=== PATIENT | male | born 1940 | race Caucasian/White ===

== ENCOUNTER 2016-12-22 09:52 | Observation (INO) | payer OTHER ==
[~2016-12-22] VITALS: Ht 180.3 cm; Wt 71.0 kg
[~2016-12-22 09:52] MED LIST: ACET1TAB49 PO; METO-53 PO
[2016-12-22] MEDS ORDERED: ASPIRIN 81 MG TAB PO STA ×2 (10:15→10:21)
[2016-12-22] MEDS ORDERED: NITROGLYCERIN 2% 1 GM OINT PKT TD STA ×2 (10:15→10:21)
--- NOTE | 2016-12-22 10:29 | RADRPT ---
PROCEDURE: XR Chest. CLINICAL INDICATION: Chest pain TECHNIQUE: Single portable view of the chest was obtained COMPARISON: 08/07/08 FINDINGS: The heart and mediastinum are within normal limits. There are mild bibasilar atelectatic changes. The lungs are otherwise clear. There is no pleural effusion or pneumothorax. RPTAT: AA IMPRESSION: Mild bibasilar atelectatic changes. .Stevie Lanier MD, MD Date Time Electronically viewed and signed by .Stevie Lanier MD, on 12/22/2016 10:29 .S/
[2016-12-22] MEDS ORDERED: NITROGLYCERIN (SL) 0.4 MG TAB SL PRN ×2 (10:30)
[2016-12-22] MEDS ORDERED: LISI2.5T59 PO (10:48)
[2016-12-22] MEDS ORDERED: NITR0.4T32 SL (10:48)
[2016-12-22] MEDS ORDERED: FINA5TAB4 PO (10:48)
[2016-12-22 11:00] LABS: BASOPHILS % 0.1 % (0.0-2.0); EOSINOPHILS % 0.5 % (0.0-7.0); HEMATOCRIT 42.9 % (42.0-52.0); HEMOGLOBIN 14.6 g/dl (14.0-18.0); LYMPHOCYTES # 1.8 10^3/ul (0.8-2.9); LYMPHOCYTES % 20.3 % (15.0-51.0); MEAN CORPUSCULAR HEMOGLOBIN 33.8 pg (29.0-33.0); MEAN CORPUSCULAR VOLUME 99.3 fl (82.0-101.0); MEAN PLATELET VOLUME 10.6 fl (7.4-10.4); MONOCYTE # 0.4 10^3/ul (0.3-0.9); MONOCYTES % 4.6 % (0.0-11.0); NEUTROPHIL # 6.5 10^3/ul (1.6-7.5); NEUTROPHILS % 74.3 % (39.0-77.0); PLATELET COUNT 123 10^3/UL (140-415); RED BLOOD COUNT 4.32 10^6/ul (4.70-6.10); WHITE BLOOD COUNT 8.7 10^3/ul (4.8-10.8)
[2016-12-22 11:19] LABS: ANION GAP 10 (8-16); BLOOD UREA NITROGEN 13 mg/dl (7-20); CALCIUM 9.4 mg/dl (8.4-10.2); CARBON DIOXIDE 30 mmol/L (21-31); CHLORIDE 107 mmol/L (97-110); CREATININE 0.92 mg/dl (0.61-1.24); GLUCOSE 115 mg/dl (70-220); POTASSIUM 4.8 mmol/L (3.5-5.1); SODIUM 142 mmol/L (135-144)
--- NOTE | 2016-12-22 11:26 | RADRPT ---
PROCEDURE: CT Brain without contrast. CLINICAL INDICATION: Dizziness. TECHNIQUE: A CT of the brain was performed on multidetector high-resolution CT scanner utilizing a xial sections from the skull base through the vertex without contrast. The scan was reviewed in sof t tissue brain and high frequency resolution bone algorithm windows. Images were reviewed on a high -resolution PACS workstation. One or more the following does reduction techniques were utilized: Aut omated exposure control, adjustment of the mA/ or kV according to patient's size, or use of iterativ e reconstruction technique. The exam CTDI = 45.01 mGy and the DLP = 720.23 mGy-cm. DICOM images are available. COMPARISON: Brain CT 10/09/2007. FINDINGS: The ventricles and sulci are mildly to moderately prominent indicative of volume loss, more pronounc ed in bilateral frontotemporal regions. There is mild cerebellar volume loss. There is no intracran ial hemorrhage, mass effect or midline shift. No abnormal intra-axial or extra-axial fluid collecti ons are seen. The naqvi/white matter differentiation is preserved. There are moderate patchy foci of hypoattenuation in the white matter, which are nonspecific in etio logy but likely reflect chronic small vessel ischemic changes. Small old lacunar infarcts are noted in bilateral lentiform nuclei, thalami, coronal radiata and bilateral caudate heads. There are moder ate intracranial vascular calcifications consistent with atherosclerosis. The visualized paranasal s inuses are essentially clear. IMPRESSION: 1. No acute intracranial hemorrhage, transcortical infarction or mass effect. 2. Moderate intracranial atherosclerosis and chronic small vessel ischemic changes. 3. Small old lacunar infarcts in bilateral lentiform nuclei, thalami, coronal radiata and bilateral caudate heads. 4. Mild to moderate cerebral and cerebellar volume loss. RPTAT: HH .Ian Corey MD, MD Date Time Electronically viewed and signed by .Ian Corey MD, MD on 12/22/2016 11:26 .N/
[2016-12-22 11:41] LABS: TROPONIN-I < 0.012 ng/ml (0.00-0.12)
[2016-12-22] MEDS ORDERED: ONDANSETRON 4 MG INJ IV PRN ×2 (12:00→13:00)
[2016-12-22] MEDS ORDERED: ACETAMINOPHEN 325 MG TAB PO PRN ×2 (12:00→13:00)
[2016-12-22] MEDS ORDERED: ONDANSETRON 4 MG TAB PO PRN (13:00)
[2016-12-22] MEDS ORDERED: NACL 0.9% 3 ML SYG IV SCH (13:00)
--- NOTE | 2016-12-22 13:24 | ERD ---
ER Documentation Chief Complaint Chief Complaint pt bib family with c/o chest pain starting at 6 am with dizziness HPI Patient is a 76-year-old male with vertigo and hypertension who presents with dizziness. The patient has had dizziness since this morning and threw up. He still feels dizziness but improved a bit. He tried meclizine at home. He denies weakness or headache. He said that he felt the similar symptoms in 2007 at that time he had a heart attack. His primary doctor is Dr. Maximus Henao. He is a longtime smoker. ROS All systems reviewed and are negative except as per history of present illness. Medications Home Meds Reported Medications Finasteride* (Finasteride*) 5 Mg Tablet, 5 MG PO DAILY, TAB 12/22/16 Nitroglycerin* (Nitroglycerin* SL) 0.4 Mg Tab.subl, 0.4 MG SL Q5MIN Y for CHEST PAIN, BOTTLE 12/22/16 Lisinopril* (Lisinopril*) 2.5 Mg Tablet, 2.5 MG PO DAILY, #30 TAB 12/22/16 Discontinued Reported Medications [Unknown] No Conflict Check 04/03/11 Metoprolol (Lopressor) 50 Mg Tablet, 50 MG PO DAILY 04/03/11 Acetaminophen/Phenyltolx Cit (Asa Free Analgesic Tablet) 1 Tab Tablet, 81 MG PO DAILY 04/03/11 Allergies Allergies: Coded Allergies: No Known Drug Allergies (Verified Allergy, Unknown, 04/03/11) PMhx/Soc History of Surgery: Yes (BYPASS SURGERY 2010,ANGIOPLASTY) Anesthesia Reaction: No Hx Neurological Disorder: No Hx Respiratory Disorders: No Hx Cardiac Disorders: Yes (HIGH CHOLESTEROL,HYPERTENSION ) Hx Psychiatric Problems: No Hx Miscellaneous Medical Probl: No Hx Alcohol Use: No Hx Substance Use: No Hx Tobacco Use: Yes Smoking Status: Current every day smoker FmHx Family History: No diabetes Physical Exam Vitals Vital Signs Date Time Temp Pulse Resp B/P Pulse Ox O2 Delivery O2 Flow Rate FiO2 12/22/16 12:19 47 18 135/75 100 Nasal Cannula 12/22/16 10:44 Nasal Cannula 2 12/22/16 09:59 98.3 55 16 167/78 100 Physical Exam Const: No acute distress Head: Atraumatic Eyes: Normal Conjunctiva ENT: Normal External Ears, Nose and Mouth. Neck: Full range of motion..~ No meningismus. Resp: Clear to auscultation bilaterally Cardio: Regular rate and rhythm, no murmurs Abd: Soft, non tender, non distended. Normal bowel sounds Skin: No petechiae or rashes Back: No midline or flank tenderness Ext: No cyanosis, or edema Neur: Awake and alert Psych: Normal Mood and Affect Result Diagram: 12/22/16 1030 12/22/16 1030 Results 24 hrs Laboratory Tests Test 12/22/16 10:30 White Blood Count 8.710^3/ul Red Blood Count 4.3210^6/ul Hemoglobin 14.6g/dl Hematocrit 42.9% Mean Corpuscular Volume 99.3fl Mean Corpuscular Hemoglobin 33.8pg Mean Corpuscular Hemoglobin Concent 34.0g/dl Red Cell Distribution Width 13.0% Platelet Count 36050^3/UL Mean Platelet Volume 10.6fl Neutrophils % 74.3% Lymphocytes % 20.3% Monocytes % 4.6% Eosinophils % 0.5% Basophils % 0.1% Nucleated Red Blood Cells % 0.0/100WBC Neutrophils # 6.510^3/ul Lymphocytes # 1.810^3/ul Monocytes # 0.410^3/ul Eosinophils # 0.010^3/ul Basophils # 0.010^3/ul Nucleated Red Blood Cells # 0.010^3/ul Sodium Level 142mmol/L Potassium Level 4.8mmol/L Chloride Level 107mmol/L Carbon Dioxide Level 30mmol/L Anion Gap 10 Blood Urea Nitrogen 13mg/dl Creatinine 0.92mg/dl Glucose Level 115mg/dl Calcium Level 9.4mg/dl Troponin I < 0.012ng/ml Current Medications Medications (Trade) Dose Ordered Sig/Ko Route PRN Reason Start Time Stop Time Status Last Admin Dose Admin Aspirin (Aspirin) 162 mg ONCE STAT PO 12/22/16 10:15 12/22/16 10:22 DC Nitroglycerin (Nitroglycerin 2% Oint) 1 inch ONCE STAT TD 12/22/16 10:15 12/22/16 10:22 DC Nitroglycerin (Nitroglycerin (Sl Tab) 0.4 Mg) 1 tab Q5M UP TO 3 DOSES PRN SL CHEST PAIN 12/22/16 10:30 12/22/16 10:30 DC Aspirin (Aspirin) 162 mg ONCE STAT PO 12/22/16 10:21 12/22/16 10:22 DC 12/22/16 10:27 Nitroglycerin (Nitroglycerin 2% Oint) 1 inch ONCE STAT TD 12/22/16 10:21 12/22/16 10:22 DC 12/22/16 10:42 Nitroglycerin (Nitroglycerin (Sl Tab) 0.4 Mg) 1 tab Q5M UP TO 3 DOSES PRN SL CHEST PAIN 12/22/16 10:30 Ondansetron HCl (Zofran Inj) 4 mg ER BRIDGE PRN IV NAUSEA AND/OR VOMITING 12/22/16 12:00 12/22/16 12:56 DC Acetaminophen (Tylenol Tab) 650 mg ER BRIDGE PRN PO MILD PAIN/FEVER 12/22/16 12:00 12/22/16 12:56 DC IV Flush (NS 3 ml) 3 ml PER PROTOCOL IV 12/22/16 13:00 Ondansetron HCl (Zofran Tab) 4 mg Q6H PRN PO NAUSEA AND/OR VOMITING 12/22/16 13:00 Ondansetron HCl (Zofran Inj) 4 mg Q6H PRN IV NAUSEA AND/OR VOMITING 12/22/16 13:00 Acetaminophen (Tylenol Tab) 650 mg Q6H PRN PO PAIN LEVEL 1-3 OR FEVER 12/22/16 13:00 Enoxaparin Sodium (Lovenox) 40 mg DAILY SC 12/23/16 09:00 Finasteride (Proscar) 5 mg DAILY PO 12/23/16 09:00 Lisinopril (Zestril) 2.5 mg DAILY PO 12/23/16 09:00 Procedures/MDM EKG #1 read by me: Rate/Rhythm: Sinus bradycardia rate of 50 Intervals: Normal Impression: Sinus bradycardia without ischemia EKG #2 is pending at this time. Chest x-ray negative per radiology. CT brain negative per radiology. Smoking Cessation Therapy: Pt. was lectured for greater than 3 minutes on the health risks of continued smoking and the benefits of cessation. Patient is a 76-year-old male with previous [place] and hypertension as well as smoking who presents with dizziness and vomiting. My concern is that these were similar symptoms that he had prior when he had an [place] in 2007. He was given aspirin nitroglycerin empirically. He will be admitted to the panel team to a telemetry bed under observation status. He is a [facility] patient will be admitted to the panel team. I doubt pneumonia, pneumothorax, pulmonary embolism, or aortic dissection. I doubt stroke or intracranial hemorrhage or mass. Departure Diagnosis: Primary Impression: Dizziness Additional Impression: Chest pain Chest pain type: unspecified Qualified Code: R07.9 - Chest pain, unspecified type Condition: EMMA Hamilton MD Dec 22, 2016 13:23
--- NOTE | 2016-12-22 14:01 | HP ---
Date/Time of Note Date/Time of Note DATE: 12/22/16 TIME: 13:51 Assessment/Plan VTE Prophylaxis VTE Prophylaxis Intervention: SCD's Lines/Catheters IV Catheter Type (from Nrs): Saline Lock Assessment/Plan Assessment/Plan 76 yo M with pmhx CAD sp angioplasty presents with 1 day of lightheadedness, 1 episode of vomitting. HR in ER in the 40s. D/dx includes symptomatic bradycardia from SSS v orthostatic hypotension v viral gastro v other PLAN tele monitoring TSH, TTE cont home BP meds ACS r/o started by the ER cardiology eval for PM given HR in 40s orthostatics cont home finasteride, hold acei DVT prophx cardiac diet start daily asa. check a1c and lipids HPI/ROS Admit Date/Time Admit Date/Time Hx of Present Illness CC lightheadedness x 1 day HPI 76 yo M with pmhx CAD sp angioplasty in 2007, HTN, BPH presents with 1 day of lightheadedness. Pt reports he was in his USOH in the past few days however when he awoke this morning he felt very lightheaded. Also had 1 episode of nonbloody nonbilious emesis. No chest pain, no SOB, no fevers, no chills. No abd pain. No changes in PO habits in recent days, no dysuria or hematuria PMH/Family/Social Past Medical History as per [facility] Social History lives with his of 53 years in the community Smoking Status: Current every day smoker Exam/Review of Systems Vital Signs Vitals Vital Signs Date Time Temp Pulse Resp B/P Pulse Ox O2 Delivery O2 Flow Rate FiO2 12/22/16 12:19 47 18 135/75 100 Nasal Cannula 12/22/16 10:44 2 12/22/16 09:59 98.3 Exam Exam EOMI MMM +bradycardic lungs clear abd soft no rashes no edema moves exts freely HR in ER on tele in mid-low 40s labs noted Labs Result Diagram: 12/22/16 1030 12/22/16 1030 Medications Medications Current Medications Ondansetron HCl (Zofran Tab) 4 mg Q6H PRN PO NAUSEA AND/OR VOMITING; Start at 13:00 Ondansetron HCl (Zofran Inj) 4 mg Q6H PRN IV NAUSEA AND/OR VOMITING; Start at 13:00 Acetaminophen (Tylenol Tab) 650 mg Q6H PRN PO PAIN LEVEL 1-3 OR FEVER; Start 12/22/16 at 13:00 Enoxaparin Sodium (Lovenox) 40 mg DAILY SC ; Start 12/23/16 at 09:00 Finasteride (Proscar) 5 mg DAILY PO ; Start 12/23/16 at 09:00 Lisinopril (Zestril) 2.5 mg DAILY PO ; Start 12/23/16 at 09:00 YAZMIN WONG MD Dec 22, 2016 14:01
[2016-12-22 14:47] LABS: CHOL/HDL RATIO 4.3 RATIO
--- NOTE | 2016-12-22 15:09 | CONS ---
Date/Time of Note Date/Time of Note DATE: 12/22/16 TIME: 15:01 Assessment/Plan Assessment/Plan Chief Complaint/Hosp Course Sinus bradycardia: Benign. Was able to increase his HR to 70 with just bedside arm movement. I do not think it is causing him dizziness and no e/o conduction disease as of yet. Observe for now. Dizziness: By history, likely orthostatic related though orthostatics reportedly normal here H/o CAD s/p [place]/PCI: Had dizziness in that setting but also chest pain which he does not have so doubt ACS HTN -observe on tele for heart block -echo -trend trops -if all normal tomorrow, will ambulate pt and if HR appropriately improves and pt is asymptomatic, could possibly be discharged Problems: Consultation Date/Type/Reason Admit Date/Time Date of Consultation: Dec 22, 2016 Type of Consultation: Cardiology Reason for Consultation Bradycardia, dizziness Referring Provider: YAZMIN WONG MD Hx of Present Illness 76 yo M with a h/o CAD s/p [place]/PCI 2007, HTN, who presented with dizziness/ vomiting. Pt notes that he got up today and when he stood up from his bed he began to feel dizzy which he describes as light headedness and brief episode of the room spinning. He then vomited. No abdominal pain. In 2007 he had dizziness as well so he was worried and came in. He had chest pain during his [place] however which he denies. He is essentially back to normal. He is active and walks around without any chest pain or SOB, no dizziness. Never had syncope. Not on angel blockers. per HPI Past Medical History per HPI Social History Smoking Status: Current every day smoker Exam/Review of Systems Vital Signs Vitals Vital Signs Date Time Temp Pulse Resp B/P Pulse Ox O2 Delivery O2 Flow Rate FiO2 12/22/16 14:05 44 128/73 52 125/85 63 130/77 12/22/16 12:19 18 100 Nasal Cannula 12/22/16 10:44 2 12/22/16 09:59 98.3 Exam Constitutional: alert, oriented Psych: nl mood/affect, no complaints Head: atraumatic, normocephalic Eyes: nl conjunctiva ENMT: nl external ears & nose Neck: supple, No jvd Respiratory: clear to auscultation, No crackles/rales Cardiovascular: No edema, No regular rate and rhythm (bradycardia ~50), No systolic murmur Gastrointestinal: non-tender, soft Neurological: nl mental status, nl speech Skin: No rash or lesions Results EKG: sinus bradycardia HR 50, no ST changes Tele in ED shows only sinus bradycardia Bedside arm exercise increased HR to the 70s. Result Diagram: 12/22/16 1030 12/22/16 1030 Results 24 hrs Laboratory Tests Test 12/22/16 10:30 12/22/16 11:00 White Blood Count 8.7 Red Blood Count 4.32 L Hemoglobin 14.6 Hematocrit 42.9 Mean Corpuscular Volume 99.3 Mean Corpuscular Hemoglobin 33.8 H Mean Corpuscular Hemoglobin Concent 34.0 Red Cell Distribution Width 13.0 Platelet Count 123 L Mean Platelet Volume 10.6 H Neutrophils % 74.3 Lymphocytes % 20.3 Monocytes % 4.6 Eosinophils % 0.5 Basophils % 0.1 Nucleated Red Blood Cells % 0.0 Neutrophils # 6.5 Lymphocytes # 1.8 Monocytes # 0.4 Eosinophils # 0.0 Basophils # 0.0 Nucleated Red Blood Cells # 0.0 Sodium Level 142 Potassium Level 4.8 Chloride Level 107 Carbon Dioxide Level 30 Anion Gap 10 Blood Urea Nitrogen 13 Creatinine 0.92 Glucose Level 115 Calcium Level 9.4 Troponin I < 0.012 Hemoglobin A1c 5.3 Triglycerides Level 118 Cholesterol Level 208 H LDL Cholesterol, Calculated 136 HDL Cholesterol 48 Cholesterol/HDL Ratio 4.3 Medications Medications Current Medications Ondansetron HCl (Zofran Tab) 4 mg Q6H PRN PO NAUSEA AND/OR VOMITING; Start at 13:00 Ondansetron HCl (Zofran Inj) 4 mg Q6H PRN IV NAUSEA AND/OR VOMITING; Start at 13:00 Acetaminophen (Tylenol Tab) 650 mg Q6H PRN PO PAIN LEVEL 1-3 OR FEVER; Start 12/22/16 at 13:00 Enoxaparin Sodium (Lovenox) 40 mg DAILY SC ; Start 12/23/16 at 09:00 Finasteride (Proscar) 5 mg DAILY PO ; Start 12/23/16 at 09:00 Aspirin (Halfprin) 81 mg DAILY PO ; Start 12/23/16 at 09:00 SARAH ORTIZ Dec 22, 2016 15:09
[2016-12-22 15:52] VITALS: Ht 180.3 cm; Wt 71.0 kg
[2016-12-22 16:20] VITALS: BP_SYST 120; BP_SYST 124; BP_SYST 133; BP_DIAS 65; BP_DIAS 68; BP_DIAS 71; RESP 19
[2016-12-22 16:32] LABS: CREATINE KINASE 48 IU/L (23-200)
[2016-12-22 16:38] VITALS: PULSE 49
[2016-12-22 16:47] LABS: CK-MB 0.77 ng/ml (0.0-2.4); TROPONIN-I < 0.012 ng/ml (0.00-0.12)
[2016-12-22 20:03] VITALS: BP 88/52; RESP 18
[2016-12-22 20:06] VITALS: PULSE 41
[2016-12-22 23:38] LABS: CREATINE KINASE 35 IU/L (23-200)
[2016-12-22 23:49] LABS: CK-MB 0.57 ng/ml (0.0-2.4); TROPONIN-I < 0.012 ng/ml (0.00-0.12)
[2016-12-23] VITALS (11 sets, daily range): BP systolic 96–127; BP diastolic 54–72; PULSE 39–52; RESP 17–18
[2016-12-23 08:24] LABS: BASOPHILS % 0.1 % (0.0-2.0); EOSINOPHILS # 0.1 10^3/ul (0.0-0.5); EOSINOPHILS % 1.1 % (0.0-7.0); HEMATOCRIT 40.1 % (42.0-52.0); HEMOGLOBIN 13.6 g/dl (14.0-18.0); LYMPHOCYTES # 2.7 10^3/ul (0.8-2.9); LYMPHOCYTES % 35.4 % (15.0-51.0); MEAN CORPUSCULAR HEMOGLOBIN 33.7 pg (29.0-33.0); MEAN CORPUSCULAR HGB CONC 33.9 g/dl (32.0-37.0); MEAN CORPUSCULAR VOLUME 99.5 fl (82.0-101.0); MEAN PLATELET VOLUME 10.4 fl (7.4-10.4); MONOCYTE # 0.6 10^3/ul (0.3-0.9); MONOCYTES % 7.5 % (0.0-11.0); NEUTROPHIL # 4.2 10^3/ul (1.6-7.5); NEUTROPHILS % 55.6 % (39.0-77.0); PLATELET COUNT 104 10^3/UL (140-415); RED BLOOD COUNT 4.03 10^6/ul (4.70-6.10); RED CELL DISTRIBUTION WIDTH 12.9 % (11.5-14.5); WHITE BLOOD COUNT 7.5 10^3/ul (4.8-10.8)
[2016-12-23 08:53] LABS: CALCIUM 9.5 mg/dl (8.4-10.2); CREATININE 0.97 mg/dl (0.61-1.24); MAGNESIUM 1.8 mg/dl (1.7-2.5); POTASSIUM 4.3 mmol/L (3.5-5.1)
[2016-12-23] MEDS ORDERED: ENOXAPARIN 40 MG/0.4 ML SYG SC SCH (09:00)
[2016-12-23] MEDS ORDERED: LISINOPRIL 5 MG TAB PO SCH (09:00)
[2016-12-23] MEDS ORDERED: ASPIRIN (EC) 81 MG TAB PO SCH (09:00)
[2016-12-23] MEDS ORDERED: FINASTERIDE 5 MG TAB PO SCH (09:00)
--- NOTE | 2016-12-23 10:54 | DS ---
Date/Time of Note Date/Time of Note DATE: 12/23/16 TIME: 10:54 Discharge Summary Admission/Discharge Info Admit Date/Time Dec 22, 2016 at 11:47 Discharge Date/Time Discharge Diagnosis lightheadedness of unclear etiology Patient Condition: Stable Consults cardiology Procedures troponins neg x 3, TSH wnl 11.16 TTE Conclusions 1. Normal left ventricular systolic function. Normal left ventricular cavity size. Mild concentric left ventricular hypertrophy. Ejection fraction is visually estimated at 65 %. Tissue Doppler/Mitral Doppler indices are consistent with impaired relaxation (Stage I diastolic dysfunction). 2. No significant valvular stenosis or regurgitation seen. 3. Estimated peak PA systolic pressure 36 mmHg based on RA pressure of 3 mmHg. ORTHOSTATICS SUPINE BP 104/54 HR 41 SEATED BP 113/62 HR 48 STANDING BP 125/71 HR 52 Hx of Present Illness CC lightheadedness x 1 day HPI 76 yo M with pmhx CAD sp angioplasty in 2007, HTN, BPH presents with 1 day of lightheadedness. Pt reports he was in his USOH in the past few days however when he awoke this morning he felt very lightheaded. Also had 1 episode of nonbloody nonbilious emesis. No chest pain, no SOB, no fevers, no chills. No abd pain. No changes in PO habits in recent days, no dysuria or hematuria Hospital Course HR ranged from 40s-50s while at rest, however with event minimal activity increased to the 70s. Pt with orthostasis but change in BP and HR do not meet criteria for orthostatic hypotension. Pt seen by cardiology, no further inpatient work up advised. Pt felt back to baseline by date of discharge. Home Meds Reported Medications Finasteride* (Finasteride*) 5 Mg Tablet, 5 MG PO DAILY, TAB 12/22/16 Nitroglycerin* (Nitroglycerin* SL) 0.4 Mg Tab.subl, 0.4 MG SL Q5MIN Y for CHEST PAIN, BOTTLE 12/22/16 Lisinopril* (Lisinopril*) 2.5 Mg Tablet, 2.5 MG PO DAILY, #30 TAB 12/22/16 Discontinued Reported Medications [Unknown] No Conflict Check 04/03/11 Metoprolol (Lopressor) 50 Mg Tablet, 50 MG PO DAILY 04/03/11 Acetaminophen/Phenyltolx Cit (Asa Free Analgesic Tablet) 1 Tab Tablet, 81 MG PO DAILY 04/03/11 Follow-up Plan PCP within 7 days. no changes from admit meds Primary Care Provider Elena Jacobs MD Time spent on discharge: > 30 minutes Pending Labs Laboratory Tests Test 12/22/16 11:00 12/22/16 16:12 12/22/16 22:52 12/23/16 07:38 Hemoglobin A1c 5.3% (0-5.9) Triglycerides Level 118mg/dl (0-149) Cholesterol Level 208mg/dl (100-200) LDL Cholesterol, Calculated 136mg/dl HDL Cholesterol 48mg/dl (31-75) Cholesterol/HDL Ratio 4.3RATIO Thyroid Stimulating Hormone (TSH) 1.120MIU/L (0.465-4.680) Creatine Kinase 48IU/L (23-200) 35IU/L (23-200) Creatine Kinase Index 1.6 1.6 Creatinine Kinase MB (Mass) 0.77ng/ml (0.0-2.4) 0.57ng/ml (0.0-2.4) Troponin I < 0.012ng/ml (0.00-0.12) < 0.012ng/ml (0.00-0.12) White Blood Count 7.510^3/ul (4.8-10.8) Red Blood Count 4.0310^6/ul (4.70-6.10) Hemoglobin 13.6g/dl (14.0-18.0) Hematocrit 40.1% (42.0-52.0) Mean Corpuscular Volume 99.5fl (82.0-101.0) Mean Corpuscular Hemoglobin 33.7pg (29.0-33.0) Mean Corpuscular Hemoglobin Concent 33.9g/dl (32.0-37.0) Red Cell Distribution Width 12.9% (11.5-14.5) Platelet Count 67546^3/UL (140-415) Mean Platelet Volume 10.4fl (7.4-10.4) Neutrophils % 55.6% (39.0-77.0) Lymphocytes % 35.4% (15.0-51.0) Monocytes % 7.5% (0.0-11.0) Eosinophils % 1.1% (0.0-7.0) Basophils % 0.1% (0.0-2.0) Nucleated Red Blood Cells % 0.0/100WBC (0.0-0.0) Neutrophils # 4.210^3/ul (1.6-7.5) Lymphocytes # 2.710^3/ul (0.8-2.9) Monocytes # 0.610^3/ul (0.3-0.9) Eosinophils # 0.110^3/ul (0.0-0.5) Basophils # 0.010^3/ul (0.0-0.1) Nucleated Red Blood Cells # 0.010^3/ul (0.0-0.0) Sodium Level 144mmol/L (135-144) Potassium Level 4.3mmol/L (3.5-5.1) Chloride Level 111mmol/L (97-110) Carbon Dioxide Level 28mmol/L (21-31) Anion Gap 9 (8-16) Blood Urea Nitrogen 16mg/dl (7-20) Creatinine 0.97mg/dl (0.61-1.24) Glucose Level 97mg/dl (70-220) Calcium Level 9.5mg/dl (8.4-10.2) Magnesium Level 1.8mg/dl (1.7-2.5) Copies To: CC: ELENA JACOBS MD, ELLEN MD Dec 23, 2016 10:54
--- NOTE | 2016-12-23 11:03 | CONS ---
Date/Time of Note Date/Time of Note DATE: 12/23/16 TIME: 11:00 Assessment/Plan Assessment/Plan Chief Complaint/Hosp Course Sinus bradycardia: Benign. Ambulated with pt and his HR improved to the 70s. No symptoms. This proves chronotropic competence and no further workup is necessary at this time. Dizziness: By history, likely orthostatic related though orthostatics reportedly normal here. H/o CAD s/p [place]/PCI: Had dizziness in that setting but also chest pain which he does not have. Trops negative. EF normal HTN -ok for discharge from my perspective -f/u as outpt with cardiology Problems: Consultation Date/Type/Reason Admit Date/Time Dec 22, 2016 at 11:47 Initial Consult Date 12/22/16 Type of Consultation: Cardiology Referring Provider: YAZMIN WONG MD 24 HR Interval Summary Free Text/Dictation Sinus bradycardia overnight. While asleep down to 40s. When awake and resting 50s. I walked the pt and he had no symptoms, HR improved to 70s Exam/Review of Systems Vital Signs Vitals Vital Signs Date Time Temp Pulse Resp B/P Pulse Ox O2 Delivery O2 Flow Rate FiO2 12/23/16 08:00 45 12/23/16 07:51 98.0 18 110/61 99 12/22/16 12:19 Nasal Cannula 12/22/16 10:44 2 Intake and Output 12/22/16 12/22/16 12/23/16 15:00 23:00 07:00 Intake Total 400 ml 400 ml Balance 400 ml 400 ml Exam Constitutional: alert, oriented Psych: nl mood/affect, no complaints Head: atraumatic, normocephalic Neck: No jvd Respiratory: clear to auscultation, No crackles/rales, No diminished breath sounds Cardiovascular: No edema, No regular rate and rhythm (slightly bradycardic at rest 50s), No systolic murmur Gastrointestinal: non-tender, soft, No distended Neurological: nl mental status, nl speech Results Result Diagram: 12/23/16 0738 12/23/16 0738 Results 24 hrs Laboratory Tests Test 12/22/16 16:12 12/22/16 22:52 12/23/16 07:38 Creatine Kinase 48 35 Creatine Kinase Index 1.6 1.6 Creatinine Kinase MB (Mass) 0.77 0.57 Troponin I < 0.012 < 0.012 White Blood Count 7.5 Red Blood Count 4.03 L Hemoglobin 13.6 L Hematocrit 40.1 L Mean Corpuscular Volume 99.5 Mean Corpuscular Hemoglobin 33.7 H Mean Corpuscular Hemoglobin Concent 33.9 Red Cell Distribution Width 12.9 Platelet Count 104 L Mean Platelet Volume 10.4 Neutrophils % 55.6 Lymphocytes % 35.4 Monocytes % 7.5 Eosinophils % 1.1 Basophils % 0.1 Nucleated Red Blood Cells % 0.0 Neutrophils # 4.2 Lymphocytes # 2.7 Monocytes # 0.6 Eosinophils # 0.1 Basophils # 0.0 Nucleated Red Blood Cells # 0.0 Sodium Level 144 Potassium Level 4.3 Chloride Level 111 H Carbon Dioxide Level 28 Anion Gap 9 Blood Urea Nitrogen 16 Creatinine 0.97 Glucose Level 97 Calcium Level 9.5 Magnesium Level 1.8 Medications Medications Current Medications Ondansetron HCl (Zofran Tab) 4 mg Q6H PRN PO NAUSEA AND/OR VOMITING; Start at 13:00 Ondansetron HCl (Zofran Inj) 4 mg Q6H PRN IV NAUSEA AND/OR VOMITING; Start at 13:00 Acetaminophen (Tylenol Tab) 650 mg Q6H PRN PO PAIN LEVEL 1-3 OR FEVER; Start 12/22/16 at 13:00 Enoxaparin Sodium (Lovenox) 40 mg DAILY SC Last administered on 12/23/16 08: 23; Admin Dose 40 MG; Start 12/23/16 at 09:00 Finasteride (Proscar) 5 mg DAILY PO Last administered on 12/23/16 08:10; Admin Dose 5 MG; Start 12/23/16 at 09:00 Aspirin (Halfprin) 81 mg DAILY PO Last administered on 12/23/16 08:10; Admin Dose 81 MG; Start 12/23/16 at 09:00 SARAH ORTIZ Dec 23, 2016 11:03
--- NOTE | 2016-12-23 11:35 | RADRPT ---
Echocardiogram Report Patient Name: ALEKS GONZALEZ Gender: Male Date: 1940 Study Date: 22-Dec-2016 Electric Motor Mechanic: Tayla [facility] Location: [facility] Ref. Physician: YAZMIN WONG Quality: Adequate Procedures: Transthoracic echocardiogram with complete 2D, M-Mode, and doppler examination. Indications: Bradycardia. 2D/M Mode Doppler Measurement Value Normal Ranges Measurement Value Normal Ranges LVIDd 2D 5.0 3.5 - 5.6 cm AV Peak Shivam 1.4 m/sec LVIDs 2D 3.1 2.1 - 4.1 cm AV Peak PG 7.0 mmHg FS 2D 38.0 % LVOT Peak Shivam 1.0 m/sec LVPWd 2D 1.1 0.6 - 1.1 cm LVOT Peak PG 4.0 mmHg IVSd 2D 1.1 0.6 - 1.1 cm MV E Peak Shivam 0.6 m/sec IVS/LVPW 2D 1.0 MV A Peak Shivam 0.8 m/sec AoR Diam 2D 3.5 2.0 - 3.7 cm MV E/A 0.8 LA/Ao 2D 1 0 - 1 MV Decel Time 320 msec EDV 2D 125.0 cm3 MV E/A 0.8 ESV 2D 29.8 cm3 TR Peak Shivam 2.9 m/sec LA Dimen 2D 4.1 2.3 - 4.0 cm TR Peak PG 33.0 mmHg RVSP 36.0 mmHg Findings Left Ventricle: Normal left ventricular systolic function. Normal left ventricular cavity size. Mild concentric left ventricular hypertrophy. Ejection fraction is visually estimated at 65 %. Tissue Doppler/Mitral Doppler indices are consistent with impaired relaxation (Stage I diastolic dysfunction). Right Ventricle: Normal right ventricular size. Normal right ventricular systolic function. Left Atrium: There is mild enlargement of left atrium. Right Atrium: The right atrium is normal in size. Mitral Valve: Normal appearance and function of the mitral valve with trace physiologic regurgitation. Aortic Valve: No significant aortic stenosis. Aortic sclerosis without stenosis. Trace aortic valve regurgitation. Tricuspid Valve: Normal appearance of the tricuspid valve. Estimated peak PA systolic pressure 36 mmHg. There is trace to mild tricuspid regurgitation. Pulmonic Valve: Pulmonic valve not well visualized. There is trace pulmonic regurgitation. Pericardium: Normal pericardium with no significant pericardial effusion. Aorta: Normal aortic root. IVC: Normal size and normal respiratory collapse consistent with normal right atrial pressure. Conclusions 1.Normal left ventricular systolic function. Normal left ventricular cavity size. Mild concentric left ventricular hypertrophy. Ejection fraction is visually estimated at 65 %. Tissue Doppler/Mitral Doppler indices are consistent with impaired relaxation (Stage I diastolic dysfunction). 2.No significant valvular stenosis or regurgitation seen. 3.Estimated peak PA systolic pressure 36 mmHg based on RA pressure of 3 mmHg. Electronically Signed By: Remi Santos 23-Dec-2016 11:35:02 -0800 Patient Name: ALEKS GONZALEZ Study Date: 22-Dec-2016 [id number]
--- NOTE | 2016-12-23 13:10 | PDOCDIS ---
Discharge Instructions DIAGNOSIS Discharge Diagnosis lightheadedness of unclear etiology CONDITION Patient Condition: Good HOME CARE INSTRUCTIONS: Diet Instructions: Low Fat /CholesterolSpecial Diet: Cardiac diet ACTIVITY: Activity Restrictions: No Restrictions FOLLOW UP/APPOINTMENTS Follow-up Plan PCP within 7 days. no changes from admit YAZMIN Tomlin MD Dec 23, 2016 13:10
== END 2016-12-23 12:20 | disposition home or self-care (01) ==
LOC: E/R 09:52 → TEL 11:47
PROVIDERS: ADMIT Internal Medicine; ATTEND Internal Medicine
DX: R42 Dizziness and giddiness (principal); R07.9 Chest pain, unspecified; I10 Essential (primary) hypertension; E78.00 Pure hypercholesterolemia, unspecified; I25.10 Atherosclerotic heart disease of native coronary artery without angina pectoris; Z98.61 Coronary angioplasty status; N40.0 Benign prostatic hyperplasia without lower urinary tract symptoms; F17.200 Nicotine dependence, unspecified, uncomplicated
CPT/HCPCS: 36415; 70450; 71010; 80048; 80061; 82550; 82553; 83036; 83735; 84443; 84484; 85025; 93005; 93306; 99285; G0378; J1650

== ENCOUNTER 2017-05-29 04:57 | Observation (INO) | END 2017-05-30 15:00 | disposition home or self-care (01) ==